=== PATIENT | male | born 1935 | race African-American/Black ===

== ENCOUNTER 2021-04-10 15:19 | Emergency (ER) | payer MEDICARE ==
[~2021-04-10] VITALS: Ht 180.3 cm; Wt 73.0 kg
[2021-04-10] MEDS ORDERED: MORPHINE SULFATE 4 MG/ML CPJ (NOT FOR IM USE) IV STA (16:24)
[2021-04-10] MEDS ORDERED: ONDANSETRON HCL 4MG/2ML INJ IV STA (16:24)
[2021-04-10] MEDS ORDERED: SODIUM CHLORIDE 0.9% 500 ML IV ONE (16:30)
[2021-04-10 16:57] LABS: BASOPHILS % 0.8 % (0.0-2.0); EOSINOPHILS % 1.7 % (0.0-5.0); HEMOGLOBIN. 11.5 g/dL (14.0-18.0); LYMPHOCYTES % 26.6 % (20.0-50.0); MEAN CORPUSCULAR HEMOGLOBIN 26.6 pg (28.0-32.0); MEAN CORPUSCULAR VOLUME 78.5 fL (80.0-94.0); MONOCYTES % 10.7 % (2.0-8.0); NEUTROPHILS % 60.2 % (40.0-76.0); PLATELET 189 x1000/uL (130-400); RED BLOOD CELL COUNT 4.33 mill/uL (4.7-6.1); RED CELL DISTRIBUTION WIDTH 14.1 % (11.6-14.6)
[2021-04-10 17:01] LABS: CLARITY URINE CLEAR (CLEAR); COLOR URINE YELLOW (YELLOW); KETONES URINE NEGATIVE (NEGATIVE); LEUKOCYTE ESTERASE URINE NEGATIVE (NEGATIVE); NITRITE URINE NEGATIVE (NEGATIVE); OCCULT BLOOD URINE NEGATIVE (NEGATIVE); PH URINE 6.5 (4.5-8.0); PROTEIN URINE NEGATIVE (NEGATIVE); SPECIFIC GRAVITY URINE 1.009 (1.005-1.030)
[2021-04-10 17:02] LABS: CHLORIDE 104 mEq/L (98-107)
[2021-04-10 17:05] LABS: INR 1.2; PROTHROMBIN TIME 12.9 sec (9.6-11.0)
[2021-04-10 22:00] VITALS: BP 167/89
== END 2021-04-10 22:06 | disposition home or self-care (01) ==
LOC: ER 15:40
DX: R11.2 Nausea with vomiting, unspecified (principal); R07.89 Other chest pain; F03.90 Unspecified dementia, unspecified severity, without behavioral disturbance, psychotic disturbance, mood disturbance, and anxiety; I10 Essential (primary) hypertension; Z95.0 Presence of cardiac pacemaker
CPT/HCPCS: 36415; 71045; 74176; 80053; 81003; 83605; 83690; 83880; 84484; 85025; 85610; 86850; 86900; 86901; 93005; 96361; 96374; 96375; 99285; J2270; J2405; J7040